=== PATIENT | female | born 1945 | race Caucasian/White ===

== ENCOUNTER 2017-06-06 13:45 | Emergency (ER) | payer OTHER, MEDICARE ==
[2017-06-06 14:05] VITALS: BP 134/86; PULSE 87; TEMP 99.3; BMI 29.2
--- NOTE | 2017-06-06 14:17 | PDOC ---
History of Present Illness - History of Present Illness Initial Comments: 06/06/17 14:32 Patient is a 71 year old female with a significant past medical history of Breast Ca (Left, 10 years), s/p 2 Cardiac Stents (7 years), who presents to the ED with complaints of intense cough that began 2 days ago while in the hospital with her mother. Patient reports taking care of her mother in [facility] when she began experiencing a productive bad cough, with yellow phlegm 2 days ago, that shows no signs of subsiding. She reports experiencing general body aches, headache and chills. Patient states she has received her flu shot this year, but states it was only received 5 days ago. She reports mother was admitted to the hospital for Bad case of pneumonia and bacteria in her blood. Patient states her mother is being discharged from the hospital today, so she wanted to make sure she is okay before she takes her home. She states she lives in [place], but has been visiting [place] since . Denies nausea, vomiting. Denies fevers. Denies dysuria, hematuria. Denies constipation, diarrhea. Denies any other symptoms. Allergies: None Social history: No smoking. No alcohol. No illicit drugs. Surgical history: x2 Stents. PMD: None Adult ROS General: +General Body Aches. +chills. No fevers, no weakness, no weight loss HEENT: No change in vision. No sore throat, No ear pain Cardiovascular: +Chest pain. No shortness of breath Respiratory: +Coughing. No wheezing. Gastrointestinal: No nausea, vomiting, diarrhea or constipation, No rectal bleeding Genitourinary: No dysuria, hematuria, or frequency Musculoskeletal: No joint or muscle pain or swelling Neurologic: +headache. No vertigo, dizziness or loss of consciousness Psychiatric: No depression Skin: No rashes or easy bruising Endocrine: No increased thirst or abnormal weight change Allergic: No skin or latex allergy All other systems reviewed and normal Adult PE General: Well-nourished well-developed individual, no acute distress HEENT: Throat: Normal, tonsils normal, no erythema or exudate Neck: Supple, no meningeal signs, no lymphadenopathy Eyes::Pupils equal reactive and round, extraocular motion intact Chest: Nontender to palpation Cardiac: S1-S2 normal, regular rate and rhythm, no murmurs rubs or gallops Respiratory: +Decreased breath sounds on right base, with slight ronchi. Extremities: Warm, dry, no cyanosis, clubbing, or edema Skin: No rashes Neuro: Alert and oriented x3, nonfocal exam, grossly intact, normal gait Psych: Normal mood and affect <Saulo Cade - Last Filed: 06/06/17 14:32> - General History Source: Patient Exam Limitations: No Limitations - History of Present Illness Initial Comments: A portion of this note was documented by scribe services under my direction. I have reviewed the details of the note, within reason, and agree with the documentation. The case summary and management plan written by me. Chest x-ray: No acute pathology 06/06/17 14:56 Assessment and plan: This is a 71-year-old female who comes in complaining of influenza-like symptoms initially that of now progressed to cough, congestion fevers and chills. Patient has been at the hospital with her elderly mother taking care of her mother who is pneumonia. Patient did not get her flu shot in tell about 4 days ago. Patient had a chest x-ray that I don't see any acute infiltrate however there is some questionable peribronchial thickening. Clinically I did hear some rhonchi on the right base. As a chest x-ray will leg behind the clinical exam times starting the patient on azithromycin to cover her for bronchitis/ pneumonia. I also am starting the patient on Tamiflu as she only got her flu shot a few days ago and has been in the hospital for the last several days as a visitor. Patient discharged. Her primary care doctors are in another state but I told her if anything changes she should come back for reevaluation <Tanmay Gomez I - Last Filed: 06/06/17 15:01> - General Chief Complaint: Respiratory Stated Complaint: COUGH,CHILLS Time Seen by Provider: 06/06/17 13:54 Past History <Saulo Cade - Last Filed: 06/06/17 14:32> - Past Medical History Cancer: Yes (H/O BREAST CA) Cardiac Disorders: Yes (CAD) COPD: No - Surgical History Cardiac Surgery: Yes (CARDIAC STENTS) - Suicide/Smoking/Psychosocial Hx Smoking History: Never smoked Have you smoked in the past 12 months: No Hx Alcohol Use: No Drug/Substance Use Hx: No <Tanmay Gomez I - Last Filed: 06/06/17 15:01> - Past Medical History Allergies/Adverse Reactions: Allergies Allergy/AdvReac Type Severity Reaction Status Date / Time No Known Allergies Allergy Verified 06/06/17 13:59 Home Medications: Ambulatory Orders Aspirin [ASA -] 81 mg PO DAILY 06/06/17 Atorvastatin Ca [Lipitor] 40 mg PO HS 06/06/17 Azithromycin 250 mg PO DAILY #4 tablet 06/06/17 Metoprolol Succinate 25 mg PO DAILY 06/06/17 Oseltamivir Phosphate [Tamiflu] 75 mg PO BID #10 capsule 06/06/17 *Physical Exam - Vital Signs Last Vital Signs Temp Pulse Resp BP Pulse Ox 99.3 F 87 18 134/86 97 06/06/17 13:45 06/06/17 13:45 06/06/17 13:45 06/06/17 13:45 06/06/17 13:45 <Saulo Cade - Last Filed: 06/06/17 14:32> - Vital Signs Last Vital Signs Temp Pulse Resp BP Pulse Ox 99.3 F 87 18 134/86 97 06/06/17 13:45 06/06/17 13:45 06/06/17 13:45 06/06/17 13:45 06/06/17 13:45 <Tanmay Gomez I - Last Filed: 06/06/17 15:01> *DC/Admit/Observation/Transfer - Attestations Scribe Attestion: 06/06/17 14:32 Documentation prepared by Saulo Cade, acting as center medical director for Tanmay Gomez MD/DO. <Saulo Cade - Last Filed: 06/06/17 14:32> - Discharge Dispostion Admit: No <Tanmay Gomez I - Last Filed: 06/06/17 15:01> Diagnosis at time of Disposition: Bronchitis, Influenza-like illness - Discharge Dispostion Disposition: HOME - Prescriptions Prescriptions: Azithromycin 250 mg PO DAILY #4 tablet Oseltamivir Phosphate [Tamiflu] 75 mg PO BID #10 capsule - Patient Instructions Additional Instructions: Take azithromycin 1 tablet a day for the next 4 days. You were given a first dose here in the emergency room so your next dose is due tomorrow afternoon. Take Tamiflu one tablet twice a day for the next 5 days. Tylenol or Motrin as needed for body aches, headache and fevers. Return to the emergency department immediately with ANY new, persistent or worsening symptoms. Continue any medications as previously prescribed by your physician. You should follow up with your primary doctor as soon as possible regarding today's emergency department visit. . Please make sure your doctor reviews the results of your emergency evaluation. Thank you for coming to the Emergency Department today for your care. It was a pleasure to see you today. Please note that your evaluation is INCOMPLETE until you follow-up with your doctor.
[2017-06-06] MEDS ORDERED: OSELTAMIVIR PHOSPHATE 75 MG CAPSULE PO ONE (14:50)
[2017-06-06] MEDS ORDERED: AZITHROMYCIN 500 MG TABLET PO ONE (14:50)
[2017-06-06] MEDS ORDERED: OSELTAMIVIR PHOSPHATE 75 MG CAPSULE ONE (14:51)
[2017-06-06] MEDS ORDERED: AZITHROMYCIN 250 MG TABLET ONE (14:52)
== END 2017-06-06 15:00 | disposition home or self-care (01) ==
LOC: FER 13:45
DX: J40 Bronchitis, not specified as acute or chronic (principal); J11.1 Influenza due to unidentified influenza virus with other respiratory manifestations; Z85.3 Personal history of malignant neoplasm of breast; Z95.5 Presence of coronary angioplasty implant and graft
CPT/HCPCS: 71046-TC; 99283-25